=== PATIENT | female | born 1975 | race Two or more races ===

== ENCOUNTER 2017-05-02 00:37 | Emergency (ER) | payer SELFPAY ==
[~2017-05-02] VITALS: Ht 170.2 cm; Wt 61.2 kg
--- NOTE | 2017-05-02 00:57 | NUR ---
[id number] FR HOME FOR C/O BODY PAIN, WEAK S/P EATING TWO MARIJUANA BROWNIES TODAY, UNABLE TO ELICIT ANY FURTHER INFORMATION FROM PT. PT AOX1 RR EVEN AND UNLABORED. NO SOB NOTED. NAD NOTED. NO NVD AT THIS TIME. PT GOWNED AND PLACED ON MONITOR WAITING FOR MD RAIN.
[2017-05-02] MEDS ORDERED: IV NS 0.9% 1,000 ML BAG IV ONE ×2 (01:00→04:00)
[2017-05-02] MEDS ORDERED: LORAZEPAM INJ 2 MG/ML VIAL IV ONE (01:00)
[2017-05-02] MEDS ORDERED: LORAZEPAM INJ 2 MG/ML VIAL ONE (01:08)
[2017-05-02 01:18] LABS: BASOPHILS % (AUTO) 0.3 % (0.0-2.0); EOSINOPHILS % (AUTO) 0.4 % (0.0-6.0); HEMATOCRIT 42 % (33-45); HEMOGLOBIN 14.2 g/dL (11.5-14.8); LYMPHOCYTES # (AUTO) 3.1 /CMM (0.8-4.8); LYMPHOCYTES % (AUTO) 28.2 % (20.0-44.0); MEAN CORPUSCULAR HEMOGLOBIN 31 PG (26.0-33.0); MEAN CORPUSCULAR HGB CONC 34 g/dl (31.0-36.0); MEAN CORPUSCULAR VOLUME 92 fL (82-100); MONOCYTES # (AUTO) 0.4 /CMM (0.1-1.30); MONOCYTES % (AUTO) 3.5 % (2.0-12.0); NEUTROPHILS # (AUTO) 7.5 /CMM (1.8-8.9); NEUTROPHILS % (AUTO) 67.6 % (43.0-81.0); PLATELET COUNT (AUTO) 324 /CMM (150-450); RDW COEFFICIENT OF VARIATION 12.3 (11.5-15.0); RED BLOOD CELL COUNT(AUTO) 4.59 MIL/uL (4.0-5.2); WHITE BLOOD COUNT (AUTO) 11.1 K/uL (4.3-11.0)
[2017-05-02 01:34] LABS: CALCIUM, SERUM 9.6 mg/dL (8.5-10.1); CREATININE 0.8 mg/dL (0.6-1.3)
[2017-05-02 01:37] LABS: INR 1.01 (0.87-1.13); PROTHROMBIN TIME 10.5 SECS (9.5-12.7)
[2017-05-02 01:39] LABS: ALBUMIN 4.2 g/dL (3.4-5.0); BILIRUBIN,DIRECT 0.1 mg/dL (0.0-0.2); BILIRUBIN,TOTAL 0.4 mg/dL (0.2-1.0); SALICYLATE 1.1 mg/dL (2.8-20.0); TOTAL PROTEIN, SERUM 7.9 g/dL (6.4-8.2)
--- NOTE | 2017-05-02 02:48 | NUR ---
SPOKE TO LAB FOR LAB RESULTS CORRECTION. URINE HCG NOTED NEGATIVE, INTENDED FOR PREGNACY SERUM RESULTS Addendum: 05/02/17 [address] SKY MADE AWARE.
--- NOTE | 2017-05-02 03:50 | NUR ---
DR. SKY AT [facility] SPEAKING TO PT.
--- NOTE | 2017-05-02 04:21 | NUR ---
URINE COLLECTED. CALLED LAB FOR PHOTOLITHOGRAPHER.
--- NOTE | 2017-05-02 04:22 | NUR ---
PT NOTED AOX3 AMBULATORY WITH STEADY GAIT DR. SKY MADE AWARE
[2017-05-02 04:34] LABS: APPEARANCE,URINE CLEAR (CLEAR); BILIRUBIN,URINE NEGATIVE (NEGATIVE); BLOOD, URINE NEGATIVE Ery/uL (NEGATIVE); COLOR,URINE YELLOW (YELLOW); KETONES,URINE 1+ (NEGATIVE); LEUKOCYTE ESTERASE ,URINE NEGATIVE (NEGATIVE); NITRITE, URINE NEGATIVE (NEGATIVE); PH,URINE 5.5 (5.0-8.0); PROTEIN,URINE NEGATIVE (NEGATIVE); UGLUCOSE NEGATIVE (NEGATIVE); UROBILINOGEN,URINE 0.2 EU/dL (0.2)
[2017-05-02 04:40] LABS: BACTERIA,URINE Few /HPF (None Seen); RBC,URINE 0-2 /HPF (0-2); SQUAMOUS EPITHELIAL CELL,UR Few /HPF (None Seen); WBC,URINE 0-2 /HPF (0-3)
--- NOTE | 2017-05-02 08:31 | NUR ---
CALL RECEIVED FROM A FRIEND,SAM , SAYING THAT PT CALLED HER, WHEN ASKED IF SHE CAN PICK HER UP, SHE ANSWERED NO, ASSISTED TO THE BATHROOM, AMBULATED WITH STEADY GAIT.
[2017-05-02 08:34] VITALS: BP 120/78
--- NOTE | 2017-05-02 08:35 | NUR ---
IV removed. Catheter intact and site benign. Pressure and 4x4 applied to site. No bleeding noted.Patient discharged to home in stable condition. Written and verbal after care instructions given. Patient verbalizes understanding of instruction.
== END 2017-05-02 08:36 | disposition home or self-care (01) ==
LOC: ER 00:38
DX: R41.82 Altered mental status, unspecified (principal); F12.10 Cannabis abuse, uncomplicated; T40.7X5A Adverse effect of cannabis (derivatives), initial encounter; Y92.89 Other specified places as the place of occurrence of the external cause
CPT/HCPCS: 36415; 70450; 80048; 80076; 80305; 80329; 81001; 84703; 85025; 85730; 93005; 96361; 96374; 99285; A4606; G0480; J2060; J7030 ×2; Z7610; 81000-TC